=== PATIENT | male | born 1980 ===

== ENCOUNTER 2018-08-02 08:33 | Day surgery (SDC) | payer BC, OTHER ==
[2018-08-01 11:29] VITALS: BMI 27.3
[2018-08-02] MEDS ORDERED: Propofol 10 mg/ml Inj (20 ML) ONE (11:41)
[2018-08-02] MEDS ORDERED: Lactated Ringer's 1,000 ML IV ONE (11:43)
[2018-08-02 12:18] VITALS: TEMP 98; O2SAT 100
[2018-08-02 12:32] VITALS: RESP 18
[2018-08-02 12:55] VITALS: BP 116/63; PULSE 60
== END 2018-08-02 11:55 | disposition home or self-care (01) ==
LOC: C.ENDO 08:33
PROVIDERS: ATTEND Internal Medicine Gastroenterology
DX: K21.0 Gastro-esophageal reflux disease with esophagitis (principal); K29.50 Unspecified chronic gastritis without bleeding
CPT/HCPCS: 43239; 88305; J2704; J7120